=== PATIENT | female | born 1950 | race Hispanic/Latino ===

== ENCOUNTER → 2025-01-29 | Outpatient (CLI) | payer OTHER, MEDICARE ==
[~2025-01-29] MED LIST: REGADENOSON 0.4 MG/5 ML PF SYG IVP ONE
--- NOTE | 2025-01-29 21:07 | HMCSR ---
APPROVED REPORT Height: 5 ft 0in Weight: 160 lbs TEST INDICATIONS angina pectoris The imaging protocol used to acquire images was Rest Tc-99m/stress Tc-99m 1 day Consent: The procedure was explained and understood by the patient. Informerd consent was witnessed John Holcomb RN First, low dose rest was performed then high dose stress. RESTING DATA: The resting ekg shows: NSR Rest SPECT myocardial perfusion imaging was performed in supine position minutes following the intra venous injection of 11 mCi of Tc-99 Sestamibi. Time of rest injection: 08:49: Date: 01/29/2025 PHARMACOLOGIC STRESS: Pharmacologic stress test was performed by injecting regadenoson 0.4 mg IV push followed by the intra venous injection of 30 mCi of Tc-99 Sestamibi. Time of stress injection: 10:18: Date: 01/29/2025 Heart Rate at time of stress injection: 60 bpm. Gated Stress SPECT was performed 60 minutes after stress injection. The images were gated to evaluate regional wall motion and calculate left ventricular ejection fracti on. STRESS DETAILS Reason for Termination: Infusion complete Stress Symptoms: Dyspnea Max HR Achieved: 89 bpm % of APMHR Achieved: 72 Max Blood Pressure: 124/71 mmHg Stress ECG: NSR Study quality was fair. Lung uptake was Normal. Artifact: increased GI uptake LEFT VENTRICLE Size: The left ventricular size is normal. Systolic Function:The left ventricular systolic function is normal. Wall Motion: No regional wall motion abnormalities noted. The left ventricular ejection fraction was calculated to be 62%.TID = 1.21. LV PERFUSION Subdiaphragmatic interference gives impression of large septal and mid anterior fixed defect, but no evidence of ischemia. RV Size/Shape Normal RV Conclusion The left ventricular ejection fraction was calculated to be 62%.TID = 1.21. Subdiaphragmatic interference gives impression of large septal and mid anterior fixed defect, but no evidence of ischemia.
== END | disposition home or self-care (01) ==
LOC: RAH 08:04
PROVIDERS: ATTEND Family Medicine
DX: I20.9 Angina pectoris, unspecified (principal); R06.00 Dyspnea, unspecified
CPT/HCPCS: 78452; 93017; J2785; A9500 ×2

== ENCOUNTER → 2025-03-01 | Outpatient (CLI) | payer OTHER, MEDICARE ==
--- NOTE | 2025-03-01 11:08 | HMCIMG ---
CHEST 2VWS HISTORY: Dyspnea COMPARISON: 04/15/2017 FINDINGS: Frontal and lateral projections of the chest were obtained. There is no acute pulmonary infiltrates or failure. The heart is not enlarged. No evidence of aortic calcification is seen. Degenerative changes are seen of the thoracolumbar spine. IMPRESSION: 1. No acute pulmonary infiltrates.
== END | disposition home or self-care (01) ==
LOC: RAH 09:22
PROVIDERS: ATTEND Family Medicine
DX: R06.00 Dyspnea, unspecified (principal); M47.815 Spondylosis without myelopathy or radiculopathy, thoracolumbar region
CPT/HCPCS: 71046

== ENCOUNTER → 2025-05-08 | Outpatient (CLI) | payer OTHER, MEDICARE ==
--- NOTE | 2025-05-09 07:44 | HMCIMG ---
EXAMINATION: COMPLETE TRANSABDOMINAL ULTRASOUND OF PELVIS. CLINICAL HISTORY: Pain. COMPARISON: Ultrasound of the pelvis dated 02/18/[address] abdomen and pelvis with contrast dated 05/25/2016. TECHNIQUE: Multiple real-time grayscale images of the pelvis were obtained with transabdominal transducer. FINDINGS: The uterus is not visualized, post hysterectomy status. Both the ovaries are not visualized. There is no free fluid in the pelvis. IMPRESSION: Post hysterectomy status. Ovaries not visualized. /[place]
== END | disposition home or self-care (01) ==
LOC: RAH 13:11
PROVIDERS: ATTEND Family Medicine
DX: R10.2 Pelvic and perineal pain (principal); Z90.710 Acquired absence of both cervix and uterus
CPT/HCPCS: 76857